=== PATIENT | female | born 1995 ===

== ENCOUNTER 2022-10-29 12:22 | Emergency (ER) | payer SELFPAY ==
[2022-10-29 12:48] VITALS: BP 121/84
[2022-10-29 13:01] VITALS: BP 111/62
[2022-10-29 15:30] VITALS: BP 111/62
== END 2022-10-29 15:29 | disposition left against medical advice (07) | DRG 951 ==
LOC: ED 12:22 → LWOBS 15:29
DX: Z53.21 Procedure and treatment not carried out due to patient leaving prior to being seen by health care provider (principal)